=== PATIENT | male | born 1950 | race Caucasian/White ===

== ENCOUNTER 2016-09-13 10:36 | Emergency (ER) | payer OTHER, BC ==
[~2016-09-13 10:36] MED LIST: CAT0.1 PO; CATAPRES0.1 MG PO; CELEXA PO; COL100 PO; CORE25 PO; COREG CR20 MG PO; NEU300 PO; NEURONTIN600 MG PO; NOR10T PO; PRI20 PO; ROX5 PO; ROXICODONE15 MG PO; SULAR PO; UNIVASC PO; VENTOLIN H0.09 MG/A1 IH; ZES20 PO; ZOC10 PO
--- NOTE | 2016-09-13 10:40 | NUR ---
PT C/O SOB X1 WK AND MID STERNAL NON-RADIATING ACHING 9/10 CHEST PAIN PROVOKED WITH COUGH AND DEEP BREATH X3 DAYS. PT IS AAOX4, FOLLOWS COMMANDS, ANSWERS QUESTIONS APPROPRIATELY. RESP EVEN AND SLIGHTLY LABORED. PT SPEAKING IN SHORT 2-3 WORD SENTENCES. DESHAUN EXP WHEEZES REX. PRODUCTIVE COUGH WITH GREEN PHLEGM. PT REPORTS PROGRESSIVELY WORSENING OF SYMPTOMS. PT ALSO REPORTS RUQ ABD PAIN AND STS PAIN IS SHARP WITH COUGH. PT DENIES N//V/D. PT DENIES PAIN UPON URINATION. PT DENIES FEVER. PT REPORTS RECEIVING FLU VACCINATION
--- NOTE | 2016-09-13 10:44 | NUR ---
DR CRUZ AT BEDSIDE FOR MSE
--- NOTE | 2016-09-13 10:52 | NUR ---
ASSISTANT TRACK COACH AT BEDSIDE FOR BLOOD DRAW
--- NOTE | 2016-09-13 11:00 | NUR ---
PT GIVEN URINAL FOR URINE SAMPLE COLLECTION. URINE SENT TO LAB
--- NOTE | 2016-09-13 11:06 | NUR ---
R/T AT BEDSIDE FOR ABG BLOOD DRAW
--- NOTE | 2016-09-13 11:15 | NUR ---
BREATHING TREATMENTS IN PROGRESS
[2016-09-13 11:23] LABS: BASOPHIL % 0.2 % (0-2); PLATELET COUNT 241 x10^3mcL (130-400)
[2016-09-13 11:27] LABS: UA SPECIFIC GRAVITY <=1.005 (1.005-1.035); microscopic required? YES; urine erythrocyte TRACE (NEGATIVE)
--- NOTE | 2016-09-13 11:27 | NUR ---
RADIOLOGY AT BEDSIDE FOR PCXR
[2016-09-13 11:46] LABS: CARBON DIOXIDE 32.5 mmol/L (21-32); CHLORIDE SERUM 100 mmol/L (98-107); POTASSIUM SERUM 4.7 mmol/L (3.5-5.1); SODIUM SERUM 138 mmol/L (136-145)
[2016-09-13 11:47] LABS: ALBUMIN 3.7 g/dL (3.4-5.0); ALT/SGPT 31 U/L (16-63); AST/SGOT 36 U/L (15-37); BILIRUBIN TOTAL 0.37 mg/dL (0.20-1.00); CALCIUM 8.8 mg/dL (8.5-10.1); CREATININE SERUM 0.8 mg/dL (0.7-1.3); GFR1 > 60 mL/min; GLUCOSE SERUM 93 mg/dL (74-106); TOTAL PROTEIN, SERUM 7.5 g/dL (6.4-8.2)
[2016-09-13 11:48] LABS: ALKALINE PHOSPHATASE 64 U/L (46-116); CHOLESTEROL 136 mg/dL (<200); HDL CHOLESTEROL 38 mg/dL (40-60)
--- NOTE | 2016-09-13 11:53 | NUR ---
R/T AT BEDSIDE FOR 2ND BREATHING TREATMENT. PT CONTINUES TO PRESENT WITH DESHAUN EXP WEEHZES. PT NO LONGER PRESENT WITH LABORED BREATHING. PT REPORTS FEELING EASE OF BREATHING
[2016-09-13 12:12] LABS: AMPHETAMINE QUAL UR NONE DETECTED (NEG <=1000)
[2016-09-13 12:34] LABS: AMYLASE 74 U/L (25-115); LIPASE 216 IU/L (73-393)
--- NOTE | 2016-09-13 12:53 | NUR ---
PT STS THAT HE WANTS TO LEAVE AMA. PT VERBALIZES UNDERSTANDING OF POSSIBLE RISK AND CONSEQUENSES OF LEAVING AMA THAT DR CRUZ INFORMED HIM OF. PT SIGNED AMA FORM. PT REPORTS FEELING BETTER AND THAT HE "LINE ONLY 5 MINS AWAY" IF HE HAS TO CALL 911. DR CRUZ MADE AWARE PT IS REQUESTING STEROIDS UPON DC
[2016-09-13 12:54] VITALS: BP 110/75
--- NOTE | 2016-09-13 13:03 | NUR ---
UNABLE TO DO ECHO PT NOT IN ROOM YET.
--- NOTE | 2016-09-13 13:25 | NUR ---
RCV'D CANCELLATION FOR ECHO BY DR GARRETT
[2016-09-13 13:26] LABS: CHOLESTEROL/HDL RATIO 3.6
[2016-09-13 13:35] LABS: T3 TOTAL 1.3 ng/mL
[2016-09-13 13:36] LABS: FREE T4 0.85 ng/dL (0.76-1.46); FREE THYROXINE INDEX 1.8 ug/dL (1.4-4.5); T4(THYROXINE) 5.5 ug/dL (4.7-13.3)
== END 2016-09-13 13:08 | disposition left against medical advice (07) ==
LOC: ED 10:36 → DU 12:33 → ED 12:33
PROVIDERS: Emergency Medicine; Family Medicine
DX: J44.9 Chronic obstructive pulmonary disease, unspecified (principal); R06.89 Other abnormalities of breathing; R07.9 Chest pain, unspecified; I10 Essential (primary) hypertension; F32.9 Major depressive disorder, single episode, unspecified; G89.29 Other chronic pain; M54.9 Dorsalgia, unspecified; E66.9 Obesity, unspecified
CPT/HCPCS: 36600; 80307; 82962; 83880; 84439; 94150; J1885; J2930; J7613; J7644; Q0092